=== PATIENT | female | born 1935 | race Caucasian/White ===

== ENCOUNTER → 2016-06-01 | Outpatient (CLI) | payer MEDICARE, BC ==
[~2016-06-01] MED LIST: CALCIUM CARBON500 M1 PO; CENTRUM PO; INDOMETHACIN PO; LOTENSIN10 MG PO; LUTEIN PO; MUCINEX 60600 MG/TA1 PO; MVI PO; PERCOCET 5/321 UDTAB PO; REQUIP 0.5MG0.5 MG PO; SINGULAIR10 MG PO; SYNTHROID0.1 MG/TAB PO; VITAMIN C BUFF500 MG PO; VITAMIN C1 TAB PO
== END ==
LOC: BHSO 09:57
DX: F06.32 Mood disorder due to known physiological condition with major depressive-like episode (principal)

== ENCOUNTER → 2016-08-01 | Outpatient (CLI) | payer MEDICARE, BC | LOC: BHSO 10:18 | DX: F06.32 Mood disorder due to known physiological condition with major depressive-like episode (principal) ==

== ENCOUNTER → 2016-11-01 | Outpatient (CLI) | payer MEDICARE, BC | LOC: BHSO 09:42 | DX: F06.32 Mood disorder due to known physiological condition with major depressive-like episode (principal) ==

== ENCOUNTER → 2017-01-31 | Outpatient (CLI) | payer MEDICARE, BC | LOC: BHSO 10:20 | DX: F06.32 Mood disorder due to known physiological condition with major depressive-like episode (principal) ==

== ENCOUNTER → 2017-08-02 | Outpatient (CLI) | payer MEDICARE, BC | LOC: BHSO 09:47 | DX: F33.42 Major depressive disorder, recurrent, in full remission (principal) | CPT/HCPCS: G0463 ==

== ENCOUNTER → 2018-01-30 | Outpatient (CLI) | payer MEDICARE, BC | LOC: BHSO 10:36 | DX: F33.41 Major depressive disorder, recurrent, in partial remission (principal) | CPT/HCPCS: G0463 ==

== ENCOUNTER → 2018-09-17 | Outpatient (CLI) | payer MEDICARE, BC | LOC: BHSO 10:45 | DX: F33.42 Major depressive disorder, recurrent, in full remission (principal) | CPT/HCPCS: G0463 ==

== ENCOUNTER → 2019-03-18 | Outpatient (CLI) | payer MEDICARE, BC | LOC: BHSO 10:01 | DX: F33.41 Major depressive disorder, recurrent, in partial remission (principal) | CPT/HCPCS: G0463 ==

== ENCOUNTER → 2019-10-01 | Outpatient (CLI) | payer MEDICARE, BC ==
[2019-10-01 14:16] LABS: BASO % 0.4 % (0.0-2.0); EOS # 0.4 (0.0-0.7); EOS % 8.2 % (0-4.0); GRAN # 2.5 (1.4-6.5); GRAN % 55.1 % (42.2-75.2); LYMPH # 1.2 (1.2-3.4); LYMPH % 25.6 % (20.0-51.0); MEAN CELL VOLUME 99 fl (80.0-100.0); MEAN CORPUSCULAR HGB CONC 30 g/dl (33.0-37.0); MEAN PLATELET VOLUME 10.2 fl (7.4-10.4); MONO # 0.5 (0.1-0.6); MONO % 10.5 % (1.7-9.3); PLATELET COUNT 390 K/mm3 (130-400); RED BLOOD COUNT 3.08 M/mm3 (4.10-5.30); REDCELL DISTRIBUTION WIDTH-CV 13.6 % (11.5-14.5)
[2019-10-01 14:17] LABS: HEMATOCRIT 30.6 % (37.0-47.0); HEMOGLOBIN 9.2 g/dl (12.5-16.0); MEAN CORPUSCULAR HEMOGLOBIN 30 pg (27.0-31.0)
[2019-10-01 14:25] LABS: ALBUMIN 3.1 gm/dL (3.5-5.0); BILIRUBIN,TOTAL 0.4 mg/dL (0.0-1.0); CALCIUM 8.8 mg/dL (8.4-10.2); CREATININE, serum 0.9 (0.52-1.25); POTASSIUM 3.7 mmol/L (3.4-5.0); TOTAL PROTEIN 6.4 gm/dL (6.4-8.2)
[2019-10-01 14:55] LABS: THYROID STIMULATING HORMONE 0.032 uIU/mL (0.465-4.680)
== END ==
LOC: ZLAB.STJ 12:43
PROVIDERS: Family Medicine
DX: I10 Essential (primary) hypertension (principal); D62 Acute posthemorrhagic anemia; E03.9 Hypothyroidism, unspecified

== ENCOUNTER 2019-10-27 15:35 | Emergency (ER) | payer MEDICARE, BC ==
[~2019-10-27] VITALS: Ht 167.6 cm; Wt 59.1 kg
[2019-10-27 15:38] VITALS: TEMP 96.9
[2019-10-27 16:38] LABS: BASO % 0.5 % (0.0-2.0); EOS # 0.2 (0.0-0.7); EOS % 2.6 % (0-4.0); GRAN # 5.5 (1.4-6.5); GRAN % 74.4 % (42.2-75.2); LYMPH # 0.9 (1.2-3.4); LYMPH % 12.8 % (20.0-51.0); MEAN CELL VOLUME 97 fl (80.0-100.0); MEAN CORPUSCULAR HGB CONC 30 g/dl (33.0-37.0); MEAN PLATELET VOLUME 9.9 fl (7.4-10.4); MONO # 0.7 (0.1-0.6); MONO % 9.3 % (1.7-9.3); PLATELET COUNT 314 K/mm3 (130-400); RED BLOOD COUNT 3.34 M/mm3 (4.10-5.30); REDCELL DISTRIBUTION WIDTH-CV 13.8 % (11.5-14.5)
[2019-10-27 16:41] LABS: HEMATOCRIT 32.5 % (37.0-47.0); HEMOGLOBIN 9.8 g/dl (12.5-16.0); MEAN CORPUSCULAR HEMOGLOBIN 29 pg (27.0-31.0)
[2019-10-27 16:46] LABS: INR 1.1 (0.8-3.0); PROTHROMBIN TIME 12.1 SECONDS (9.7-12.8)
[2019-10-27 17:12] LABS: ALANINE AMINOTRANSFERASE 9 U/L (4-34); ALKALINE PHOSPHATASE 78 U/L (50-136); ANION GAP 5 mmol/L (7-16); AST,SGOT 22 U/L (15-37); BILIRUBIN,TOTAL 0.4 mg/dL (0.0-1.0); BLOOD UREA NITROGEN 16 mg/dL (7-17); CALCIUM 8.1 mg/dL (8.4-10.2); CARBON DIOXIDE 28 mmol/L (22-30); CHLORIDE 105 mmol/L (98-107); CREATININE, serum 0.91 (0.52-1.25); GLUCOSE 111 mg/dL (74-106); POTASSIUM 3.7 mmol/L (3.4-5.0); SODIUM 138 mmol/L (137-145); TOTAL PROTEIN 6.3 gm/dL (6.4-8.2)
[2019-10-27 17:21] LABS: CREATINE KINASE < 20 U/L (30-135)
[2019-10-27 17:25] LABS: TROPONIN-I < 0.012 ng/mL (0.000-0.035)
[2019-10-27 19:28] VITALS: BP 138/77; PULSE 66
== END 2019-10-27 19:28 | disposition home or self-care (01) ==
LOC: COL.ER 15:35
PROVIDERS: Emergency Medicine
DX: R55 Syncope and collapse (principal); F03.90 Unspecified dementia, unspecified severity, without behavioral disturbance, psychotic disturbance, mood disturbance, and anxiety; I10 Essential (primary) hypertension
CPT/HCPCS: J7030; Q9967

== ENCOUNTER → 2020-06-18 | Outpatient (CLI) | payer MEDICARE, BC ==
[2020-06-18 13:33] LABS: BASO % 0.5 % (0.0-2.0); EOS # 0.2 (0.0-0.7); EOS % 4.6 % (0-4.0); GRAN # 2.1 (1.4-6.5); GRAN % 51.6 % (42.2-75.2); HEMOGLOBIN 10.7 g/dl (12.5-16.0); LYMPH # 1.2 (1.2-3.4); LYMPH % 29.5 % (20.0-51.0); MEAN CELL VOLUME 100 fl (80.0-100.0); MEAN CORPUSCULAR HEMOGLOBIN 32 pg (27.0-31.0); MEAN CORPUSCULAR HGB CONC 32 g/dl (33.0-37.0); MEAN PLATELET VOLUME 10.4 fl (7.4-10.4); MONO # 0.6 (0.1-0.6); MONO % 13.8 % (1.7-9.3); PLATELET COUNT 280 K/mm3 (130-400); RED BLOOD COUNT 3.33 M/mm3 (4.10-5.30); REDCELL DISTRIBUTION WIDTH-CV 12.7 % (11.5-14.5)
[2020-06-18 13:38] LABS: ALBUMIN 3.2 gm/dL (3.5-5.0); BILIRUBIN,TOTAL 0.3 mg/dL (0.0-1.0); CALCIUM 8.9 mg/dL (8.4-10.2); CREATININE, serum 0.87 (0.52-1.25); POTASSIUM 4.2 mmol/L (3.4-5.0); TOTAL PROTEIN 6.2 gm/dL (6.4-8.2)
[2020-06-18 13:40] LABS: HEMATOCRIT 33.2 % (37.0-47.0)
== END ==
LOC: ZLAB.STJ 13:25
PROVIDERS: Family Medicine
DX: I11.9 Hypertensive heart disease without heart failure (principal)

== ENCOUNTER → 2020-08-31 | Outpatient (CLI) | payer MEDICARE, BC | LOC: COL.VAS 12:30 | DX: L03.116 Cellulitis of left lower limb (principal); R60.0 Localized edema; F03.90 Unspecified dementia, unspecified severity, without behavioral disturbance, psychotic disturbance, mood disturbance, and anxiety ==

== ENCOUNTER → 2020-11-12 | Outpatient (CLI) | payer MEDICARE, BC ==
[2020-11-12 12:18] LABS: BASO # 0.1 (0.0-0.2); BASO % 0.9 % (0.0-2.0); EOS # 0.2 (0.0-0.7); EOS % 3.3 % (0-4.0); GRAN # 3.1 (1.4-6.5); GRAN % 56.8 % (42.2-75.2); HEMOGLOBIN 11.2 g/dl (12.5-16.0); LYMPH # 1.6 (1.2-3.4); LYMPH % 28.7 % (20.0-51.0); MEAN CELL VOLUME 101 fl (80.0-100.0); MEAN CORPUSCULAR HEMOGLOBIN 32 pg (27.0-31.0); MEAN CORPUSCULAR HGB CONC 31 g/dl (33.0-37.0); MEAN PLATELET VOLUME 10.2 fl (7.4-10.4); MONO # 0.6 (0.1-0.6); MONO % 10.1 % (1.7-9.3); PLATELET COUNT 270 K/mm3 (130-400); RED BLOOD COUNT 3.56 M/mm3 (4.10-5.30); REDCELL DISTRIBUTION WIDTH-CV 12.9 % (11.5-14.5)
[2020-11-12 12:20] LABS: HEMATOCRIT 36.1 % (37.0-47.0)
[2020-11-12 12:33] LABS: ANION GAP 1 mmol/L (7-16); BLOOD UREA NITROGEN 30 mg/dL (7-17); CALCIUM 9.3 mg/dL (8.4-10.2); CARBON DIOXIDE 31 mmol/L (22-30); CHLORIDE 111 mmol/L (98-107); CREATININE, serum 1.04 (0.52-1.25); GLUCOSE 87 mg/dL (74-106); POTASSIUM 4.1 mmol/L (3.4-5.0); SODIUM 143 mmol/L (137-145)
[2020-11-12 13:04] LABS: THYROID STIMULATING HORMONE < 0.015 uIU/mL (0.465-4.680)
== END ==
LOC: ZLAB.STJ 11:25
PROVIDERS: Family Medicine
DX: N18.9 Chronic kidney disease, unspecified (principal); I95.1 Orthostatic hypotension; D62 Acute posthemorrhagic anemia; E03.9 Hypothyroidism, unspecified

== ENCOUNTER 2021-01-19 16:54 | Emergency (ER) | payer MEDICARE, BC ==
[~2021-01-19] VITALS: Ht 172.7 cm; Wt 63.6 kg
[2021-01-19 16:57] VITALS: TEMP 98.3
[2021-01-19 17:40] LABS: BASO # 0.1 (0.0-0.2); BASO % 0.8 % (0.0-2.0); EOS # 0.2 (0.0-0.7); EOS % 2.4 % (0-4.0); GRAN # 5.8 (1.4-6.5); GRAN % 72.8 % (42.2-75.2); HEMATOCRIT 37.8 % (37.0-47.0); HEMOGLOBIN 11.9 g/dl (12.5-16.0); LYMPH # 1.2 (1.2-3.4); LYMPH % 15.3 % (20.0-51.0); MEAN CELL VOLUME 101 fl (80.0-100.0); MEAN CORPUSCULAR HEMOGLOBIN 32 pg (27.0-31.0); MEAN CORPUSCULAR HGB CONC 32 g/dl (33.0-37.0); MEAN PLATELET VOLUME 10.1 fl (7.4-10.4); MONO # 0.7 (0.1-0.6); MONO % 8.4 % (1.7-9.3); PLATELET COUNT 247 K/mm3 (130-400); RED BLOOD COUNT 3.74 M/mm3 (4.10-5.30); REDCELL DISTRIBUTION WIDTH-CV 12.5 % (11.5-14.5)
[2021-01-19 17:50] LABS: ALBUMIN 3.2 gm/dL (3.4-4.8); ALKALINE PHOSPHATASE 79 U/L (0-750); ANION GAP 9 mmol/L; AST,SGOT 13 U/L (5-34); BILIRUBIN,TOTAL 0.3 mg/dL (0.2-1.2); BLOOD UREA NITROGEN 21 mg/dL (10-20); CALCIUM 8.6 mg/dL (8.4-10.2); CARBON DIOXIDE 23 mEq/L (23-31); CHLORIDE 112 mmol/L (98-107); CREATININE, serum 1.17 mg/dL (0.57-1.11); GLUCOSE 136 mg/dL (70-99); POTASSIUM 3.7 mmol/L (3.5-4.5); SODIUM 144 mmol/L (136-145); TOTAL PROTEIN 6.5 gm/dL (6.2-8.1)
[2021-01-19 17:51] LABS: ALANINE AMINOTRANSFERASE < 6 U/L (0-55)
[2021-01-19 19:50] VITALS: BP 129/71; PULSE 82
== END 2021-01-19 19:50 | disposition home or self-care (01) ==
LOC: COL.ER 16:54
PROVIDERS: Physician Assistant
DX: L22 Diaper dermatitis (principal); I95.1 Orthostatic hypotension; R55 Syncope and collapse; D64.9 Anemia, unspecified; R94.4 Abnormal results of kidney function studies; F03.90 Unspecified dementia, unspecified severity, without behavioral disturbance, psychotic disturbance, mood disturbance, and anxiety; I10 Essential (primary) hypertension; Z79.899 Other long term (current) drug therapy

== ENCOUNTER 2021-06-05 21:46 | Observation (INO) | payer MEDICARE, BC ==
[~2021-06-05] VITALS: Ht 160 cm; Wt 63.6 kg
[2021-06-05 22:34] LABS: BASO % 0.8 % (0.0-2.0); EOS # 0.1 K/mm3 (0.0-0.7); EOS % 2.5 % (0.0-4.0); GRAN # 3.1 K/mm3 (1.4-6.5); GRAN % 60.4 % (42.2-75.2); HEMOGLOBIN 11.1 g/dl (12.5-16.0); LYMPH # 1.4 K/mm3 (1.2-3.4); LYMPH % 27.2 % (20.0-51.0); MEAN CELL VOLUME 101 fl (80.0-100.0); MEAN CORPUSCULAR HEMOGLOBIN 32 pg (27-31); MEAN CORPUSCULAR HGB CONC 32 g/dl (33.0-37.0); MEAN PLATELET VOLUME 9.7 fl (7.4-10.4); MONO # 0.5 K/mm3 (0.1-0.6); MONO % 8.9 % (1.7-9.3); PLATELET COUNT 217 K/mm3 (130-400); REDCELL DISTRIBUTION WIDTH-CV 13.2 % (11.5-14.5)
[2021-06-05 22:35] LABS: HEMATOCRIT 35.2 % (37.0-47.0)
[2021-06-05 22:52] LABS: ALBUMIN 3.2 gm/dL (3.4-4.8); ALKALINE PHOSPHATASE 78 U/L (40-150); ANION GAP 7 mmol/L (7-16); AST,SGOT 13 U/L (5-34); BILIRUBIN,TOTAL 0.2 mg/dL (0.2-1.2); BLOOD UREA NITROGEN 26 mg/dL (10-20); CARBON DIOXIDE 27 mmol/L (23-31); CHLORIDE 111 mmol/L (98-107); CREATININE, serum 1.16 mg/dL (0.57-1.11); GLUCOSE 113 mg/dL (70-99); POTASSIUM 3.3 mmol/L (3.5-4.5); SODIUM 145 mmol/L (136-145); TOTAL PROTEIN 5.9 gm/dL (6.2-8.1)
[2021-06-05 22:54] LABS: ALANINE AMINOTRANSFERASE < 6 U/L (0-55)
[2021-06-05 23:13] LABS: TSH w REFLEX 1.824 uIU/mL (0.350-4.940)
[2021-06-05 23:15] LABS: TROPONIN-I < 0.010 ng/mL (0.00-0.033)
[2021-06-06] MEDS ORDERED: MILK OF MA400 MG/52 PO (01:08)
[2021-06-06] MEDS ORDERED: TYLENOL 325MG325 MG PO (01:08)
[2021-06-06] MEDS ORDERED: TRIAMCINOLONE A15 G3 TP (01:09)
[2021-06-06] MEDS ORDERED: VOLTAREN GEL 1%1 TU TP ×2 (01:09→02:04)
[2021-06-06] MEDS ORDERED: ZANAFLEX CAPSULE4 MG PO (01:09)
[2021-06-06] MEDS ORDERED: ULTRAM 50MG TAB50 MG PO ×5 (01:10→02:02)
[2021-06-06] MEDS ORDERED: ZOLOFT 50MG50 MG PO (01:10)
[2021-06-06] MEDS ORDERED: FLORINEF ACETA0.1 MG PO (01:10)
[2021-06-06] MEDS ORDERED: TYLENOL 500MG500 MG PO (01:10)
[2021-06-06] MEDS ORDERED: MYRBETR50MG PO (01:11)
[2021-06-06] MEDS ORDERED: ASPIRIN 81M81 MG/TA2 PO (01:11)
[2021-06-06] MEDS ORDERED: COLACE 100100 MG/CAP PO (01:11)
[2021-06-06] MEDS ORDERED: MIRALAX PA17 GM/Dose PO (01:12)
[2021-06-06] MEDS ORDERED: NAMZARIC1 ECC PO (01:12)
[2021-06-06] MEDS ORDERED: EUTHYROX100 MCG PO (01:17)
[2021-06-06 01:39] LABS: BUDDING YEAST Present (NOT PRESENT); MUCOUS Present (NOT PRESENT); PH 7 (5-8); SQUAMOUS EPITHELIAL None Seen /hpf (0-10); URINE APPEARANCE Cloudy (CLEAR/HAZY); URINE BACTERIA Rare /hpf (NONE SEEN); URINE BILIRUBIN Negative (NEGATIVE); URINE BLOOD 2+ (NEGATIVE); URINE COLOR Yellow (YELLOW); URINE GLUCOSE Negative (NEGATIVE); URINE KETONE Negative (NEGATIVE); URINE LEUKOCYTE ESTERASE 3+ (NEGATIVE); URINE NITRATE Negative (NEGATIVE); URINE PROTEIN(semi-quant) 1+ (NEGATIVE); URINE UROBILINOGEN Negative (NEGATIVE)
[2021-06-06 04:46] LABS: BASO % 0.4 % (0.0-2.0); EOS # 0.1 K/mm3 (0.0-0.7); EOS % 0.7 % (0.0-4.0); GRAN # 5.2 K/mm3 (1.4-6.5); GRAN % 69.6 % (42.2-75.2); HEMATOCRIT 38.3 % (37.0-47.0); HEMOGLOBIN 12.6 g/dl (12.5-16.0); LYMPH # 1.6 K/mm3 (1.2-3.4); LYMPH % 21.8 % (20.0-51.0); MEAN CELL VOLUME 97 fl (80.0-100.0); MEAN CORPUSCULAR HEMOGLOBIN 32 pg (27-31); MEAN CORPUSCULAR HGB CONC 33 g/dl (33.0-37.0); MEAN PLATELET VOLUME 9.8 fl (7.4-10.4); MONO # 0.6 K/mm3 (0.1-0.6); MONO % 7.4 % (1.7-9.3); PLATELET COUNT 246 K/mm3 (130-400); RED BLOOD COUNT 3.95 M/mm3 (4.10-5.30); REDCELL DISTRIBUTION WIDTH-CV 13.2 % (11.5-14.5)
[2021-06-06 04:59] LABS: CALCIUM 8.6 mg/dL (8.4-10.2); CREATININE, serum 0.95 mg/dL (0.57-1.11); POTASSIUM 4.3 mmol/L (3.5-4.5)
[2021-06-06 06:13] VITALS: BP 179/61; PULSE 59; TEMP 98.6
[2021-06-06 08:00] VITALS: BP 173/75; PULSE 67; TEMP 98.4
--- NOTE | 2021-06-06 10:00 | NUR ---
Initial visit; Patient thanked [facility] for looking in on her and offering God's blessings and to keep her in [facility]'s prayers.
--- NOTE | 2021-06-06 10:28 | NUR ---
PT RESTING IN BED, NON VERBAL,PT HAS DEMENTIA AND IS WHEEL CHAIR/BED BOUND. THERAPY TO WORK WITH PT TOLERATED. SPOKE WITH DAUGHTER AND UPDATED WITH CURRENT STATUS.
[2021-06-06 11:20] VITALS: BP 154/72; PULSE 75; TEMP 99.1
--- NOTE | 2021-06-06 11:27 | NUR ---
PT HAS FRIEND IN ROOM AT THIS TIME. PT PULLED IV OUT OF LEFT HAND. NOTIFIED STEVEN BRANHAM AND SHE AGREED TO LEAVE IV OUT AT THIS TIME. WILL MONITOR FOR FLUID REQUIREMENTS IF CONDITIONS CHANGE.
[2021-06-06 13:11] VITALS: BP 170/90; PULSE 89
--- NOTE | 2021-06-06 13:20 | NUR ---
location worker met with patient to complete intake. Patient's "commmon law " of 20 years, Jordin present at bedside. Jordin reports that the patient resides at [facility] and has been there for close to two years. At [facility], patient needs assistance with all ADL's and is wheelchair bound. No oxygen needed at the [facility]. PCP is Dr. Rojo. Patient's daughter Dai ([phone]) lives in [place], and is the patient's DPOA-HC. Copy can be found in the patient's EMR. Patient will return back to [facility] once medically ready. Discharge plan: [facility]
[2021-06-06 15:09] VITALS: BP 126/56; PULSE 88; TEMP 97.9
--- NOTE | 2021-06-06 15:44 | NUR ---
Clinical updates faxed to Wilfred at [facility]. Informed Wilfred that we are looking at a possible discharge tomorrow.
[2021-06-06 20:36] VITALS: BP 132/64; PULSE 78; TEMP 99.2
--- NOTE | 2021-06-06 23:32 | NUR ---
PATIENT RESTING IN BED. PATIENT ALERT BUT CONFUSED WHEN ASKED TO ORIENT TO TIME, PLACE, AND PERSON. LUNGS CTA. BOWEL SOUNDS AUDIBLE BUT HYPOACTIVE. RAMIREZ IN PLACE. PATIENT INDICATED LEGS WERE PAINFUL WHEN REPOSITIONED IN BED USING FLACC SCALE. PATIENT RESTING IN BED WITH CALL LIGHT WITHIN REACH.
[2021-06-07 00:52] VITALS: BP 173/87; PULSE 79; TEMP 98
[2021-06-07 02:08] VITALS: BP 166/104
--- NOTE | 2021-06-07 02:17 | NUR ---
STARTED 22G IV IN LEFT WRIST DUE TO IV MEDICATIONS NEEDED. PATIENT TOLERATED, BUT ATTEMPTED TO GRAB AT IV SITE. WRAPPED WITH COBAN.
[2021-06-07 04:38] VITALS: BP 172/64; PULSE 80; TEMP 98.7
[2021-06-07 06:40] LABS: BASO # 0.1 K/mm3 (0.0-0.2); BASO % 0.7 % (0.0-2.0); EOS # 0.1 K/mm3 (0.0-0.7); EOS % 1.2 % (0.0-4.0); GRAN # 5.2 K/mm3 (1.4-6.5); GRAN % 68.6 % (42.2-75.2); HEMATOCRIT 40.7 % (37.0-47.0); HEMOGLOBIN 13.5 g/dl (12.5-16.0); LYMPH # 1.6 K/mm3 (1.2-3.4); LYMPH % 20.5 % (20.0-51.0); MEAN CELL VOLUME 95 fl (80.0-100.0); MEAN CORPUSCULAR HEMOGLOBIN 31 pg (27-31); MEAN CORPUSCULAR HGB CONC 33 g/dl (33.0-37.0); MEAN PLATELET VOLUME 10.4 fl (7.4-10.4); MONO # 0.7 K/mm3 (0.1-0.6); MONO % 8.7 % (1.7-9.3); PLATELET COUNT 270 K/mm3 (130-400); REDCELL DISTRIBUTION WIDTH-CV 13.3 % (11.5-14.5)
[2021-06-07 06:45] LABS: CREATININE, serum 0.87 mg/dL (0.57-1.11); POTASSIUM 3.4 mmol/L (3.5-4.5)
[2021-06-07 07:41] VITALS: BP 146/76; PULSE 87; TEMP 98.3
--- NOTE | 2021-06-07 08:12 | NUR ---
PT RESTING IN BED. AWAKENS TO VERBAL. POTASSIUM PROTOCOL CONTINUED. IV TO LEFT WRIST FLUIDS RUNNING ORDERED.
[2021-06-07] MEDS ORDERED: OMNICEF 300MG300 MG PO (08:52)
[2021-06-07 08:54] VITALS: BP 123/75; PULSE 67; TEMP 97.5
[2021-06-07 10:29] LABS: COLLECTION METHOD CATHETER
[2021-06-07 11:15] VITALS: BP 114/74; PULSE 85; TEMP 98.7
--- NOTE | 2021-06-07 11:45 | NUR ---
Patient's daughter Dai arrives to unit.Provided Dai with an update that the patient is scheduled to go back to [facility] today and that they are planning on an afernoon transportation time. Dai verbalizes that she would like to be present during transition, but is going to have to travel back to [place] today. Message left for Wilfred to check on transportation time.
--- NOTE | 2021-06-07 12:02 | NUR ---
report called to Noe ROJAS @ via [facility].
--- NOTE | 2021-06-07 12:49 | NUR ---
Notified by Wilfred at [facility] that transportation can pick the patient up at 1230. Collaborated with patient RN and Daughter and both are in agreement. Let Wilfred know that 1230 is ok. Updated discharge orders faxed to [facility]. Patient's daughter asks that Jordin be taken off of all of the patient's contact information and it be replaced with her daughter Renata Ramos. Dai reports she does not want us giving information to Jordin and that she will contact him with information. Patient's admission information changed per [facility]- request.
--- NOTE | 2021-06-07 12:54 | NUR ---
TRANSFERED PT TO VIA [facility] AT THIS TIME.
== END 2021-06-07 12:55 | disposition home or self-care (01) ==
LOC: COL.ER 21:46 → SURG 06-06 01:23
PROVIDERS: Emergency Medicine; Nurse Practitioner Family; Student in an Organized Health Care Education/Training Program; ADMIT Internal Medicine
DX: R55 Syncope and collapse (principal); I10 Essential (primary) hypertension; I95.9 Hypotension, unspecified; E87.6 Hypokalemia; N39.0 Urinary tract infection, site not specified; N18.9 Chronic kidney disease, unspecified; N32.81 Overactive bladder; D64.9 Anemia, unspecified; E03.9 Hypothyroidism, unspecified; R51.9 Headache, unspecified; F41.9 Anxiety disorder, unspecified; F03.90 Unspecified dementia, unspecified severity, without behavioral disturbance, psychotic disturbance, mood disturbance, and anxiety; F31.9 Bipolar disorder, unspecified; Z79.899 Other long term (current) drug therapy; Z79.891 Long term (current) use of opiate analgesic; Z20.822 Contact with and (suspected) exposure to COVID-19; Z79.82 Long term (current) use of aspirin
CPT/HCPCS: 99222-AI; 99239; G0378; J0360; J0696; J1650; J3480; J7030

== ENCOUNTER → 2021-07-11 | Outpatient (CLI) | payer MEDICARE, BC ==
[~2021-07-11] MED LIST changes: +ASPIRIN 81M81 MG/TA2 PO; +COLACE 100100 MG/CAP PO; +EUTHYROX100 MCG PO; +FLORINEF ACETA0.1 MG PO; +MILK OF MA400 MG/52 PO; +MIRALAX PA17 GM/Dose PO; +MYRBETR50MG PO; +NAMZARIC1 ECC PO; +OMNICEF 300MG300 MG PO; +TRIAMCINOLONE A15 G3 TP; +TYLENOL 325MG325 MG PO; +TYLENOL 500MG500 MG PO; +ULTRAM 50MG TAB50 MG PO; +VOLTAREN GEL 1%1 TU TP; +ZANAFLEX CAPSULE4 MG PO; +ZOLOFT 50MG50 MG PO
[2021-07-11 19:44] LABS: HEMATOCRIT 38.5 % (37.0-47.0); HEMOGLOBIN 12.5 g/dl (12.5-16.0); MEAN CELL VOLUME 98 fl (80.0-100.0); MEAN CORPUSCULAR HEMOGLOBIN 32 pg (27-31); MEAN CORPUSCULAR HGB CONC 33 g/dl (33.0-37.0); MEAN PLATELET VOLUME 10.5 fl (7.4-10.4); PLATELET COUNT 327 K/mm3 (130-400); RED BLOOD COUNT 3.93 M/mm3 (4.10-5.30); REDCELL DISTRIBUTION WIDTH-CV 12.4 % (11.5-14.5)
[2021-07-11 19:46] LABS: ALBUMIN 3.6 gm/dL (3.4-4.8); BILIRUBIN,TOTAL 0.3 mg/dL (0.2-1.2); CALCIUM 8.8 mg/dL (8.4-10.2); CREATININE, serum 1.26 mg/dL (0.57-1.11); POTASSIUM 3.8 mmol/L (3.5-4.5); TOTAL PROTEIN 7.2 gm/dL (6.2-8.1)
[2021-07-11 20:06] LABS: THYROID STIMULATING HORMONE 1.546 uIU/mL (0.350-4.940)
== END ==
LOC: ZCOL.LAB 19:12
PROVIDERS: Internal Medicine
DX: E03.9 Hypothyroidism, unspecified (principal); R79.89 Other specified abnormal findings of blood chemistry; R68.89 Other general symptoms and signs

== ENCOUNTER 2021-11-27 21:30 | Emergency (ER) | payer MEDICARE, BC ==
[~2021-11-27] VITALS: Ht 167.6 cm; Wt 70.5 kg
[2021-11-27 21:42] LABS: BASO % 0.3 % (0.0-2.0); EOS % 0.3 % (0.0-4.0); GRAN # 6.7 K/mm3 (1.4-6.5); GRAN % 71.1 % (42.2-75.2); HEMOGLOBIN 11.8 g/dl (12.5-16.0); LYMPH # 1.4 K/mm3 (1.2-3.4); LYMPH % 14.5 % (20.0-51.0); MEAN CELL VOLUME 94 fl (80.0-100.0); MEAN CORPUSCULAR HEMOGLOBIN 31 pg (27-31); MEAN CORPUSCULAR HGB CONC 33 g/dl (33.0-37.0); MEAN PLATELET VOLUME 9.9 fl (7.4-10.4); MONO # 1.3 K/mm3 (0.1-0.6); MONO % 13.6 % (1.7-9.3); PLATELET COUNT 273 K/mm3 (130-400); RED BLOOD COUNT 3.78 M/mm3 (4.10-5.30); REDCELL DISTRIBUTION WIDTH-CV 12.8 % (11.5-14.5)
[2021-11-27 21:46] LABS: HEMATOCRIT 35.4 % (37.0-47.0)
[2021-11-27 21:59] LABS: ALBUMIN 3.1 gm/dL (3.4-4.8); BILIRUBIN,TOTAL 0.5 mg/dL (0.2-1.2); CALCIUM 8.4 mg/dL (8.4-10.2); CREATININE, serum 1.36 mg/dL (0.57-1.11); POTASSIUM 3.2 mmol/L (3.5-4.5); TOTAL PROTEIN 6.9 gm/dL (6.2-8.1)
[2021-11-27 22:05] LABS: TROPONIN-I 0.012 ng/mL (0.00-0.033)
[2021-11-28 01:11] LABS: MUCOUS Present (NOT PRESENT); SQUAMOUS EPITHELIAL 0-2 /hpf (0-10); URINE BACTERIA Rare /hpf (NONE SEEN)
[2021-11-28 01:12] LABS: PH 5 (5-8); URINE APPEARANCE Clear (CLEAR/HAZY); URINE BLOOD 1+ (NEGATIVE); URINE COLOR Yellow (YELLOW); URINE GLUCOSE Negative (NEGATIVE); URINE KETONE Negative (NEGATIVE); URINE NITRATE Negative (NEGATIVE); URINE PROTEIN(semi-quant) 1+ (NEGATIVE); URINE UROBILINOGEN Negative (NEGATIVE)
[2021-11-28 01:14] LABS: COLLECTION METHOD CATHETER
[2021-11-28] MEDS ORDERED: CEPHALEXIN500 M1 PO (01:26)
[2021-11-28 01:30] VITALS: BP 134/62; PULSE 64; TEMP 98.9
== END 2021-11-28 02:29 | disposition home or self-care (01) ==
LOC: COL.ER 21:30
PROVIDERS: Emergency Medicine
DX: I95.9 Hypotension, unspecified (principal); R79.89 Other specified abnormal findings of blood chemistry; Z20.822 Contact with and (suspected) exposure to COVID-19
CPT/HCPCS: J0696; J7120

== ENCOUNTER → 2021-12-01 | Outpatient (CLI) | payer MEDICARE, BC ==
[~2021-12-01] MED LIST changes: +CEPHALEXIN500 M1 PO; +DOXYCYCLINE 10100 MG PO
[2021-12-01 17:59] LABS: ALBUMIN 3.2 gm/dL (3.4-4.8); BILIRUBIN,TOTAL 0.4 mg/dL (0.2-1.2); CREATININE, serum 1.08 mg/dL (0.57-1.11); POTASSIUM 3.2 mmol/L (3.5-4.5); TOTAL PROTEIN 7.6 gm/dL (6.2-8.1)
[2021-12-01 18:00] LABS: BASO % 0.5 % (0.0-2.0); EOS # 0.1 K/mm3 (0.0-0.7); EOS % 1.7 % (0.0-4.0); GRAN # 5.4 K/mm3 (1.4-6.5); GRAN % 69.5 % (42.2-75.2); HEMATOCRIT 38.9 % (37.0-47.0); HEMOGLOBIN 12.4 g/dl (12.5-16.0); LYMPH # 1.5 K/mm3 (1.2-3.4); LYMPH % 19.3 % (20.0-51.0); MEAN CELL VOLUME 98 fl (80.0-100.0); MEAN CORPUSCULAR HEMOGLOBIN 31 pg (27-31); MEAN CORPUSCULAR HGB CONC 32 g/dl (33.0-37.0); MEAN PLATELET VOLUME 9.7 fl (7.4-10.4); MONO # 0.7 K/mm3 (0.1-0.6); MONO % 8.6 % (1.7-9.3); PLATELET COUNT 365 K/mm3 (130-400); RED BLOOD COUNT 3.99 M/mm3 (4.10-5.30); REDCELL DISTRIBUTION WIDTH-CV 12.8 % (11.5-14.5)
== END ==
LOC: ZLAB.STJ 17:53
PROVIDERS: Internal Medicine
DX: I13.10 Hypertensive heart and chronic kidney disease without heart failure, with stage 1 through stage 4 chronic kidney disease, or unspecified chronic kidney disease (principal); N18.31 Chronic kidney disease, stage 3a; F44.0 Dissociative amnesia

== ENCOUNTER 2021-12-02 22:30 | Emergency (ER) | payer MEDICARE, BC ==
[~2021-12-02] VITALS: Ht 167.6 cm; Wt 54.5 kg
[~2021-12-02 22:30] MED LIST changes: -DOXYCYCLINE 10100 MG PO
[2021-12-02 22:35] VITALS: TEMP 98.2
[2021-12-02 23:26] LABS: BASO % 0.6 % (0.0-2.0); EOS # 0.1 K/mm3 (0.0-0.7); EOS % 1.5 % (0.0-4.0); GRAN # 4.7 K/mm3 (1.4-6.5); GRAN % 65.2 % (42.2-75.2); HEMOGLOBIN 10.9 g/dl (12.5-16.0); LYMPH # 1.5 K/mm3 (1.2-3.4); LYMPH % 20.5 % (20.0-51.0); MEAN CELL VOLUME 97 fl (80.0-100.0); MEAN CORPUSCULAR HEMOGLOBIN 31 pg (27-31); MEAN CORPUSCULAR HGB CONC 32 g/dl (33.0-37.0); MEAN PLATELET VOLUME 9.6 fl (7.4-10.4); MONO # 0.9 K/mm3 (0.1-0.6); MONO % 11.9 % (1.7-9.3); PLATELET COUNT 291 K/mm3 (130-400); RED BLOOD COUNT 3.52 M/mm3 (4.10-5.30); REDCELL DISTRIBUTION WIDTH-CV 12.7 % (11.5-14.5)
[2021-12-02 23:27] LABS: HEMATOCRIT 34.2 % (37.0-47.0)
[2021-12-02 23:42] LABS: ALBUMIN 2.8 gm/dL (3.4-4.8); BILIRUBIN,TOTAL 0.3 mg/dL (0.2-1.2); C-REACTIVE PROTEIN 2.85 mg/dL (0.00-0.50); CALCIUM 8.4 mg/dL (8.4-10.2); CREATININE, serum 0.86 mg/dL (0.57-1.11); TOTAL PROTEIN 6.4 gm/dL (6.2-8.1)
[2021-12-03 01:20] VITALS: BP 132/90; PULSE 64
[2021-12-03] MEDS ORDERED: DOXYCYCLINE 10100 MG PO (01:26)
== END 2021-12-03 01:58 | disposition home or self-care (01) ==
LOC: COL.ER 22:30
PROVIDERS: Nurse Practitioner
DX: L03.113 Cellulitis of right upper limb (principal)